=== PATIENT | female | born 1985 ===

== ENCOUNTER 2019-11-15 09:12 | Outpatient (CLI) | payer OTHER | END 2019-11-15 09:17 | disposition home or self-care (01) | LOC: SONOGRAMA 09:12 → MAMO-SONO 09:15 → SONOGRAMA 09:17 | DX: R10.2 Pelvic and perineal pain (principal); N63.10 Unspecified lump in the right breast, unspecified quadrant; N63.20 Unspecified lump in the left breast, unspecified quadrant ==

== ENCOUNTER 2021-05-18 09:32 | Outpatient (CLI) | payer OTHER | END 2021-05-18 10:00 | disposition home or self-care (01) | LOC: SONOGRAMA 09:32 | PROVIDERS: ATTEND Obstetrics & Gynecology Gynecology | DX: J20.8 Acute bronchitis due to other specified organisms (principal); I50.42 Chronic combined systolic (congestive) and diastolic (congestive) heart failure; Z01.810 Encounter for preprocedural cardiovascular examination; E66.01 Morbid (severe) obesity due to excess calories; K76.0 Fatty (change of) liver, not elsewhere classified; R10.2 Pelvic and perineal pain ==